=== PATIENT | female | born 1995 | race Hispanic/Latino ===

== ENCOUNTER 2018-02-20 12:13 | Emergency (ER) | payer OTHER, SELFPAY | END 2018-02-20 13:51 | disposition home or self-care (01) | LOC: ERS 12:13 | DX: J06.9 Acute upper respiratory infection, unspecified (principal) | CPT/HCPCS: 87081; 87430; 87804; 99283 ==

== ENCOUNTER 2019-04-28 08:35 | Emergency (ER) | payer SELFPAY ==
[2019-04-28] MEDS ORDERED: Ibuprofen 200 MG TAB ONE (09:00)
== END 2019-04-28 10:07 | disposition home or self-care (01) ==
LOC: ERS 08:35
DX: J10.1 Influenza due to other identified influenza virus with other respiratory manifestations (principal)
CPT/HCPCS: 87804; 99283

== ENCOUNTER 2020-01-12 12:45 | Emergency (ER) | payer OTHER, SELFPAY ==
--- NOTE | 2020-01-12 13:25 | RAD ---
EXAM: Single view of the chest HISTORY: Cough and loss of smell COMPARISON: None FINDINGS: Single view of the chest shows a normal sized cardiomediastinal silhouette. There is a ques tionable subtle peripheral opacities in the right lower lobe. No acute osseous abnormality. IMPRESSION: Possible early right lower lobe infiltrate
[2020-01-12] MEDS ORDERED: Azithromycin 250 MG TAB ONE (14:41)
[2020-01-13 11:25] LABS: SARS-CoV-2 MS2 Positive; SARS-CoV-2 N Gene Positive; SARS-CoV-2 S Gene Positive; SARS-CoV-2 by NAA DETECTED (NotDetected); SARS-CoV-2 orf1ab Positive
== END 2020-01-12 14:46 | disposition home or self-care (01) ==
LOC: ERS 12:45
DX: U07.1 COVID-19 (principal); J12.89 Other viral pneumonia
CPT/HCPCS: 71045; 87635; 87804; U0003

== ENCOUNTER 2020-05-31 05:42 | Emergency (ER) | payer MEDICAID, SELFPAY ==
[2020-05-31] MEDS ORDERED: Ondansetron ODT 8 MG TAB ONE (05:57)
[2020-05-31] MEDS ORDERED: Ketorolac Tromethamine 30 MG/ML VIAL ONE (05:57)
[2020-05-31 06:48] LABS: Pregnancy Test - Urine (BHCG) Negative (Negative); Pregu Control Background? CLEAR/WHITE (CLR/WHITE); Pregu Control Bar Appear? YES (CONTROL BAR)
[2020-05-31 06:52] LABS: Bacteria/HPF None Seen HPF (None Seen); Bilirubin Negative (Negative); Blood, Urine Negative (Negative); Clarity Turbid (Clear); Glucose, Urine (Dipstick) Normal (Negative); Ketone, Urine Negative (Negative); Leukocyte 75 Leu/uL (Negative); Nitrite Negative (Negative); Protein, Urine (Dipstick) Negative (Neg-Trace); RBC/HPF 0-3 HPF (0-3); Specific Gravity 1.025 (1.002-1.036); Specific Gravity, Urine 1.025 (1.002-1.036); Urobilinogen Normal mg/dL (Less than 2)
== END 2020-05-31 06:59 | disposition home or self-care (01) ==
LOC: ERS 05:42
DX: M54.5 Low back pain (principal)
CPT/HCPCS: 81003; 81015; 81025; 96372; 99284; J1885; Q0162

== ENCOUNTER 2020-06-10 08:56 | Emergency (ER) | payer MEDICAID ==
[2020-06-10 09:31] LABS: Bilirubin Negative (Negative); Blood, Urine 1+ (Negative); Clarity Turbid (Clear); Glucose, Urine (Dipstick) Normal (Negative); Ketone, Urine Negative (Negative); Leukocyte 500 Leu/uL (Negative); Nitrite Negative (Negative); Protein, Urine (Dipstick) 30 mg/dL (Neg-Trace); RBC/HPF Greater than 50 HPF (0-3); Transitional Epithelial 0-3 HPF (None Seen); Urobilinogen Normal mg/dL (Less than 2); WBC/HPF Greater than 50 HPF (0-3); pH, Urine 6.5 (5.0-9.0)
[2020-06-10 09:33] LABS: Bacteria/HPF 1+ HPF (None Seen)
[2020-06-10 09:34] LABS: Pregnancy Test - Urine (BHCG) Negative (Negative); Pregu Control Background? CLEAR/WHITE (CLR/WHITE); Pregu Control Bar Appear? YES (CONTROL BAR)
== END 2020-06-10 12:30 | disposition home or self-care (01) ==
LOC: ERS 08:56
DX: N39.0 Urinary tract infection, site not specified (principal); E11.9 Type 2 diabetes mellitus without complications
CPT/HCPCS: 81003; 81015; 81025; 87086; 87186; 99284

== ENCOUNTER 2021-09-04 23:22 | Emergency (ER) | payer MEDICAID, SELFPAY ==
[2021-09-04] MEDS ORDERED: Ondansetron ODT 4 MG TAB ONE (23:50)
== END 2021-09-05 02:31 | disposition home or self-care (01) ==
LOC: ERS 23:22
DX: R22.0 Localized swelling, mass and lump, head (principal); R51.9 Headache, unspecified; Y04.0XXA Assault by unarmed brawl or fight, initial encounter
CPT/HCPCS: 70450; Q0162